=== PATIENT | female | born 1945 | race Hispanic/Latino ===

== ENCOUNTER 2025-04-23 14:55 | Observation (INO) | payer OTHER ==
[2025-04-23 15:48] LABS: Absolute Eosinophils 0.1 K/uL (0-0.5); Absolute Monocytes 0.5 K/uL (0.1-1.3); Basophils % 0.4 % (0-1.3); Eosinophils % 1.2 % (0-4.4); Hematocrit 32.3 % (36.0-45.0); Hemoglobin 11.2 g/dL (12.0-15.0); Lymphocytes % 12.9 % (15.3-44.8); MCH 30.8 pg (27.0-35.0); MCHC 34.6 g/dL (32.0-36.0); MPV 7.4 fL (7.6-11.3); Monocytes % 6.1 % (3.3-12.3); Neutrophils % 79.4 % (41.7-73.7); Nucleated Red Blood Cells % 0.1 % (0-0); Platelets 249 thou/uL (152-406); RBC Red Blood Cell Count 3.63 M/uL (3.86-4.86); Red Cell Distribution Width 13.1 % (12.1-15.2)
[2025-04-23] MEDS ORDERED: LORazepam 2 MG/ML VIAL ONE (15:55)
[2025-04-23 15:57] LABS: PT Prothrombin Time 12.3 SECONDS (10-13.0); Protime INR 1.08
[2025-04-23] MEDS ORDERED: ONDANSETRON 4 MG/2 ML VIAL ONE (15:57)
[2025-04-23] MEDS ORDERED: ASPIRIN 81 MG CHEWABLE TABLET ONE (15:58)
[2025-04-23] MEDS ORDERED: FENTANYL CITR 100 MCG/2 ML ONE (15:59)
[2025-04-23] MEDS ORDERED: FAMOTIDINE 20 MG/2 ML VIAL IV ONE (16:00)
[2025-04-23] MEDS ORDERED: NA CHLORIDE 0.9% 1,000 ML ONE (16:01)
[2025-04-23] MEDS ORDERED: NA CHLORIDE 0.9% 500 ML ONE (16:01)
[2025-04-23] MEDS ORDERED: FOLIC ACID 5 MG/ML VIAL ONE (16:02)
--- NOTE | 2025-04-23 16:04 | RAD REPORT ---
EXAM: Chest Single View HISTORY: 79 years Female CHEST PAIN COMPARISON: None. FINDINGS: LUNGS/PLEURA: The lungs are clear. No pleural effusions or pneumothorax. No pulmonary edema. CARDIAC/MEDIASTINUM: The cardiac silhouette is within normal limits. UPPER ABDOMEN: No significant abnormality. BONES: No acute abnormality. LINES/TUBES/OTHER: N/A IMPRESSION: No evidence of acute cardiopulmonary disease.
[2025-04-23 16:28] LABS: ALT/SGPT 17 U/L (13-56); AST/SGOT 11 U/L (15-37); Albumin 3.6 g/dL (3.4-5.0); Albumin/Globulin Ratio 0.9 (1.1-1.8); Alkaline Phosphatase 86 U/L (45-117); Anion Gap 16.7 mEq/L (5.0-15.0); BUN Blood Urea Nitrogen 21 mg/dL (7-18); Bicarbonate 21 mEq/L (21-32); Bilirubin Total 0.2 mg/dL (0.2-1.0); Globulin 3.9 g/dL (2.3-3.5); Glomerular Filtration Rate 73 ml/min (=/>90); Glucose Level 92 mg/dL (74-106); Lipase 40 U/L (13-75); Magnesium 1.2 mg/dL (1.6-2.4); NT PRO-BNP 307 pg/mL (<450); Potassium 3.7 mEq/L (3.5-5.1); Protein, Total 7.5 g/dL (6.4-8.2); Sodium Level 141 mEq/L (136-145); Troponin High Sensitivity 5.7 pg/mL (<58.9)
[2025-04-23 16:38] LABS: Bilirubin Direct < 0.2 mg/dL (0-0.2)
--- NOTE | 2025-04-23 17:09 | EDPHYS ---
Physician Documentation [facility] Name: Fab Goel Age: 79 yrs Sex: Female : 1945 Arrival Date: 04/23/2025 Time: 14:55 Bed 5 Private MD: ED Physician Gerardo Moss HPI: 04/23 17:01 This 79 yrs old Female presents to ER via EMS with complaints of Chest Pain. [facility] 17:01 The patient or guardian reports chest pain that is located primarily in the anterior [facility] chest wall, bilaterally. Onset: this morning, today. The pain does not radiate. Associated signs and symptoms: Pertinent positives: dizziness. The chest pain is described as dull. Duration: The patient or guardian reports multiple episodes, with no pattern. Modifying factors: The symptoms are alleviated by nothing. the symptoms are aggravated by nothing. Severity of pain: At its worst the pain was mild in the emergency department the pain has resolved and did so just prior to arrival. The patient has experienced similar episodes in the past, a few times. Historical: - Allergies: 15:46 No Known Allergies; bp - Immunization history:: Adult Immunizations up to date. - Infectious Disease History:: Denies. - Social history:: Smoking status: Patient denies any tobacco usage or history of. ROS: 17:02 Constitutional: Negative for fever, chills, and weight loss, Eyes: Negative for injury, pipo pain, redness, and discharge, ENT: Negative for injury, pain, and discharge, Neck: Negative for injury, pain, and swelling, Respiratory: Negative for shortness of breath, cough, wheezing, and pleuritic chest pain, Abdomen/GI: Negative for abdominal pain, nausea, vomiting, diarrhea, and constipation, Back: Negative for injury and pain, : Negative for injury, bleeding, discharge, and swelling, MS/Extremity: Negative for injury and deformity, Skin: Negative for injury, rash, and discoloration, Psych: Negative for depression, anxiety, suicide ideation, homicidal ideation, and hallucinations, Allergy/Immunology: Negative for hives, rash, and allergies, Endocrine: Negative for neck swelling, polydipsia, polyuria, polyphagia, and marked weight changes, Hematologic/Lymphatic: Negative for swollen nodes, abnormal bleeding, and unusual bruising, 17:02 Cardiovascular: Positive for chest pain, of the chest, 17:02 Respiratory: Negative for cough, dyspnea on exertion, hemoptysis, orthopnea, pleurisy, shortness of breath, sputum production, 17:02 Neuro: Positive for dizziness, weakness, Negative for altered mental status, seizure activity, speech changes, syncope, near syncope, visual changes, Exam: 17:02 Radiologist reports: SEE REPORT pipo 17:02 Constitutional: This is a well developed, well nourished patient who is awake, alert, and in no acute distress. Head/Face: Normocephalic, atraumatic. Eyes: Pupils equal round and reactive to light, extra-ocular motions intact. Lids and lashes normal. Conjunctiva and sclera are non-icteric and not injected. Cornea within normal limits. Periorbital areas with no swelling, redness, or edema. ENT: Nares patent. No nasal discharge, no septal abnormalities noted. Tympanic membranes are normal and external auditory canals are clear. Oropharynx with no redness, swelling, or masses, exudates, or evidence of obstruction, uvula midline. Mucous membranes moist. Neck: Trachea midline, no thyromegaly or masses palpated, and no cervical lymphadenopathy. Supple, full range of motion without nuchal rigidity, or vertebral point tenderness. No Meningismus. Chest/axilla: Normal chest wall appearance and motion. Nontender with no deformity. No lesions are appreciated. Cardiovascular: Regular rate and rhythm with a normal S1 and S2. No gallops, murmurs, or rubs. Normal PMI, no JVD. No pulse deficits. Respiratory: Lungs have equal breath sounds bilaterally, clear to auscultation and percussion. No rales, rhonchi or wheezes noted. No increased work of breathing, no retractions or nasal flaring. Abdomen/GI: Soft, non-tender, with normal bowel sounds. No distension or tympany. No guarding or rebound. No evidence of tenderness throughout. Back: No spinal tenderness. No costovertebral tenderness. Full range of motion. Female : Normal external genitalia. Skin: Warm, dry with normal turgor. Normal color with no rashes, no lesions, and no evidence of cellulitis. MS/ Extremity: Pulses equal, no cyanosis. Neurovascular intact. Full, normal range of motion., bilateral aka Neuro: Awake and alert, GCS 15, oriented to person, place, time, and situation. Cranial nerves II-XII grossly intact. Motor strength 5/5 in all extremities. Sensory grossly intact. Cerebellar exam normal. Normal gait. Psych: Awake, alert, with orientation to person, place and time. Behavior, mood, and affect are within normal limits. 17:02 ECG was reviewed by the Attending Physician. Vital Signs: 16:33 BP 151 / 70; Pulse 86 RA; dd2 16:33 BP 149 / 71; Pulse 87 LA; bp 20:38 BP 107 / 92; Pulse 73; Resp 20; Temp 98.2; Pulse Ox 98% ; bm8 NIH Stroke Scale Scores: 17:10 NIHSS Score: 0 pipo Bertram Coma Score: 20:38 Eye Response: spontaneous(4). Motor Response: obeys commands(6). Verbal Response: bm8 oriented(5). Total: 15. MDM: 15:02 Medical Screening Exam initiated pipo 17:04 Differential diagnosis: abnormal EKG, acute myocardial infarction, acute pericarditis, pipo anxiety, coronary artery disease chest wall pain, congestive heart failure Cholelithiasis costochondritis, Dementia, esophagitis, hiatal hernia, pancreatitis, peptic ulcer disease, pneumonia, pulmonary embolus, stable angina, thoracic aortic disection, unstable angina. HEART Score: History: Slightly Suspicious (0), ECG: Normal (0), Age: > or = 65 years (2), Risk Factors: 1 or 2 risk factors (1), [Hypertension] [+ Family HX] Troponin: < or = 1 x Normal Limit (0). Differential diagnosis: cardiac arrhythmia, CVA, generalized weakness, GI bleed, head injury, hyperventilation, hypovolemia, idiopathic dizziness, near-syncope, , sepsis, syncope, TIA, vertigo. The patient was given aspirin in the Emergency Department. TNKase (Tenecteplase) Screening: Contraindications: Other: ONSET DIZZY FOR 2 WEEK , CP IS NEW TODAY Patient reports onset of signs and symptoms of stroke greater than 6 hours ago: No. Data reviewed: vital signs, nurses notes, EMS record, lab test result(s), EKG, radiologic studies, CT scan, plain films. Consideration of Admission/Observation Patient was admitted/placed on observation. Escalation of care including admission/observation considered. I considered the following discharge prescriptions or medication management in the emergency department Medications were administered in the Emergency Department. See MAR. Test considered but Not performed: Ultrasound NO 2 D ECHO. Care significantly affected by the following chronic conditions: Diabetes, Hypertension. Counseling: I had a detailed discussion with the patient and/or guardian regarding the historical points, exam findings, and any diagnostic results supporting the discharge/admit diagnosis, the presence of at least one elevated blood pressure reading (>120/80) during this emergency department visit, lab results, radiology results, the need for further work-up and treatment in the hospital. 04/23 15:04 Order name: Basic Metabolic Panel; Complete Time: 16:56 [facility] 04/23 15:04 Order name: CBC with Diff; Complete Time: 16:56 [facility] 04/23 15:04 Order name: LFT's; Complete Time: 16:56 [facility] 04/23 15:04 Order name: Magnesium; Complete Time: 16:56 [facility] 04/23 15:04 Order name: NT PRO-BNP; Complete Time: 16:56 [facility] 04/23 15:04 Order name: PT-INR; Complete Time: 16:56 [facility] 04/23 15:04 Order name: Troponin HS; Complete Time: 16:56 [facility] 04/23 15:04 Order name: Lipase; Complete Time: 16:56 [facility] 04/23 15:04 Order name: UA Rfx Panfilo Cult if indicated; Complete Time: 18:23 [facility] 04/23 15:17 Order name: D-Dimer; Complete Time: 16:56 [facility] 04/23 17:17 Order name: Troponin High Sensitivity; Complete Time: 18:23 [facility] 04/23 17:55 Order name: Lipid Profile [facility] 04/23 18:51 Order name: Basic Metabolic Panel [facility] 04/23 18:51 Order name: Basic Metabolic Panel [facility] 04/23 18:51 Order name: CBC with Automated Diff [facility] 04/23 18:51 Order name: CBC with Automated Diff [facility] 04/23 18:51 Order name: Troponin High Sensitivity [facility] 04/23 18:51 Order name: Troponin High Sensitivity [facility] 04/23 18:51 Order name: Troponin High Sensitivity [facility] 04/23 18:51 Order name: Troponin High Sensitivity [facility] 04/23 18:51 Order name: Troponin High Sensitivity [facility] 04/23 15:04 Order name: XRAY Chest (1 view); Complete Time: 16:56 [facility] 04/23 15:07 Order name: CT Head Brain wo Cont; Complete Time: 18:23 [facility] 04/23 15:17 Order name: CT Head Angio; Complete Time: 18:23 [facility] 04/23 15:17 Order name: CT Neck Angio; Complete Time: 18:23 [facility] 04/23 18:51 Order name: Echo with Doppler [facility] 04/23 15:04 Order name: Cardiac monitoring; Complete Time: 15:46 [facility] 04/23 15:04 Order name: EKG - Nurse/Tech; Complete Time: 15:19 [facility] 04/23 15:04 Order name: IV Saline Lock; Complete Time: 15:43 [facility] 04/23 15:04 Order name: Labs collected and sent; Complete Time: 15:43 [facility] 04/23 15:04 Order name: O2 Per Protocol; Complete Time: 15:46 [facility] 04/23 15:04 Order name: O2 Sat Monitoring; Complete Time: 15:46 [facility] 04/23 15:17 Order name: Bilateral blood pressure; Complete Time: 16:34 [facility] EC:02 Rate is 81 beats/min. Rhythm is regular. QRS [place] is Normal. NV interval is normal. QRS pipo interval is normal. QT interval is normal. No Q waves. T waves are Normal. No ST changes noted. Clinical impression: NSR w/ Non-specific ST/T Changes, LVH, and No evidence of ischemia. Interpreted by me. Reviewed by me. Administered Medications: 16:28 Drug: foLIC Acid IVPB 1 mg IVPB once Route: IVPB; Site: right antecubital; dd2 16:29 Follow up: IV Status: Completed infusion dd2 16:28 Drug: NS 0.9% IV 1000 ml IV at 125 ml/hr once; to be given as a bolus over 60 minutes dd2 Route: IV; Rate: 125 ml/hr; Site: left antecubital; 20:41 Follow up: Response: No adverse reaction; IV Status: Infusion continued upon admission bm8 20:41 Follow up: Response: No adverse reaction; IV Status: Infusion continued upon admission ha1 16:29 Drug: Famotidine IVP 20 mg IVP once; dilute with 10 mL 0.9% NaCl; give over 2 minutes dd2 Route: IVP; Site: right hand; 20:42 Follow up: Response: No adverse reaction bm8 16:29 Drug: Aspirin PO Chewable Tablet 81 mg PO once Route: PO; dd2 20:42 Follow up: Response: No adverse reaction bm8 16:29 Drug: Ativan IVP 0.5 mg IVP once Route: IVP; Site: right hand; dd2 20:42 Follow up: Response: No adverse reaction bm8 16:29 Drug: fentaNYL (PF) IVP 25 mcg IVP once Route: IVP; Site: right antecubital; dd2 20:42 Follow up: Response: No adverse reaction bm8 16:29 Drug: Ondansetron IVP 4 mg IVP once; over 2 minutes Route: IVP; Site: right antecubital;dd2 20:41 Follow up: Response: No adverse reaction bm8 16:30 Drug: NS 0.9% IV 500 ml 500 ml IV at 1 bolus once; to be given as a bolus over 30 dd2 minutes Volume: 500 ml; Route: IV; Rate: 1 bolus; Site: right hand; 17:15 Follow up: IV Status: Completed infusion dd2 18:32 Drug: Aspirin PO Chewable Tablet 243 mg PO once Route: PO; dd2 20:41 Follow up: Response: No adverse reaction bm8 18:32 Drug: Clopidogrel PO 75 mg PO once Route: PO; dd2 19:00 Follow up: Response: No adverse reaction ha1 20:41 Follow up: Response: No adverse reaction bm8 18:32 Drug: Magnesium Sulfate IVPB 2 grams IVPB once over 2 hrs Route: IVPB; Infused Over: 2 dd2 hrs; Site: left antecubital; 20:41 Follow up: Response: No adverse reaction; IV Status: Completed infusion ha1 20:41 Follow up: Response: No adverse reaction; IV Status: Completed infusion bm8 18:32 Drug: Atorvastatin PO 40 mg PO once Route: PO; dd2 20:40 Follow up: Response: No adverse reaction bm8 Disposition Summary: 04/23/25 17:08 Hospitalization Ordered Notes: Hospitalization Status: Observation pipo Provider: Mat Hernandez cha Location: Telemetry/MedSurg (observation) pipo Condition: Stable pipo Problem: new pipo Symptoms: have improved pipo Bed/Room Type: Standard pipo Room Assignment: 408(04/23/25 18:59) sp Diagnosis - Essential (primary) hypertension pipo - Chest pain, unspecified pipo - Dizziness and giddiness pipo - Hypomagnesemia pipo Forms: - Medication Reconciliation Form pipo - SBAR form pipo - Leadership Thank You Letter pipo NIH Stroke Scale - NIH Stroke Score Date: 04/23/2025 Time: 17:10 Total Score = 0 10. Dysarthria (speech clarity - read or repeat words) - 0(Normal) 11. Extinction and Inattention (visual/tactile/auditory/spatial/personal) - 0(No abnormality) 1a. Level of Consciousness (LOC) - 0(Alert) 1b. Level of Consciousness (LOC) (Month \T\ Age) - 0(Both) 1c. LOC Commands (Open \T\ Closes Eyes/Sourcing Consultant) - 0(Both) 2. Best Gaze (Lateral Gaze Paresis) - 0(Normal) 3. Visual Field Loss - 0(No visual loss) 4. Facial Palsy - 0(Normal) 5a. Left Arm: Motor (10-second hold) - 0(No drift) 5b. Right Arm: Motor (10-second hold) - 0(No drift) 6a. Left Leg: Motor (5-second hold - always test supine) - 0(No drift) 6b. Right Leg: Motor (5-second hold - always test supine) - 0(No drift) 7. Limb Ataxia (finger/nose \T\ heel/frank - test with eyes open) - 0(Absent) 8. Sensory Loss (pinprick arms/legs/face) - 0(Normal) 9. Best Language: Aphasia (description/naming/reading) - 0(No aphasia) Initials: [facility] Signatures: Dispatcher [employer] EDMS Gerardo Moss MD MD cha Pinkerton, Shawna sp Peltier, Brian, RN RN bp DAVIS, DIANA, RN RN dd2 Selena Harrison RN ha1 Tristan Mills RN bm8 Corrections: (The following items were deleted from the chart) 15:04 15:04 BASIC METABOLIC PANEL+C.LAB.BRZ ordered. EDMS EDMS 15:04 15:04 CBC+H.LAB.BRZ ordered. EDMS EDMS 15:04 15:04 HEPATIC FUNCTION+C.LAB.BRZ ordered. EDMS EDMS 15:04 15:04 MAGNESIUM+C.LAB.BRZ ordered. EDMS EDMS 15:04 15:04 PROBNP+C.LAB.BRZ ordered. EDMS EDMS 15:04 15:04 PROTIME (+INR)+COAG.LAB.BRZ ordered. EDMS EDMS 15:04 15:04 Troponin High Sensitivity+C.LAB.BRZ ordered. EDMS EDMS 15:04 15:04 LIPASE+C.LAB.BRZ ordered. EDMS EDMS 15:04 15:04 UA Rfx Panfilo Cult if indicated+U.LAB.BRZ ordered. EDMS EDMS 15:04 15:04 Chest Single View+RAD.RAD.BRZ ordered. EDMS EDMS 15:04 15:04 Angio Aorta For Dissection+CT.RAD.BRZ ordered. EDMS EDMS 17:56 17:56 LIPID PROFILE+C.LAB.BRZ ordered. EDMS EDMS 18:59 17:08 pipo sp
--- NOTE | 2025-04-23 17:09 | ER ---
Nurse's Notes [facility] Name: Fab Goel Age: 79 yrs Sex: Female : 1945 Arrival Date: 04/23/2025 Time: 14:55 Bed 5 Private MD: Diagnosis: Essential (primary) hypertension;Chest pain, unspecified;Dizziness and giddiness;Hypomagnesemia Presentation: 04/23 15:00 Chief complaint: EMS states: CHEST TIGHTNESS. Coronavirus screen: At this time, the bp client does not indicate any symptoms associated with coronavirus-19. Ebola Screen: No symptoms or risks identified at this time. Initial Sepsis Screen: Does the patient meet any 2 criteria? No. Patient's initial sepsis screen is negative. Does the patient have a suspected source of infection? No. Patient's initial sepsis screen is negative. Risk Assessment: Do you want to hurt yourself or someone else? Patient reports no desire to harm self or others. Onset of symptoms was April 23, 2025. 15:00 Method Of Arrival: EMS: [facility] bp 15:00 Acuity: LELE 3 bp Triage Assessment: 15:00 General: Appears in no apparent distress. comfortable, Behavior is cooperative, bp appropriate for age, anxious. 15:00 Pain: Complains of pain in chest. EENT: No deficits noted. Neuro: No deficits noted. bp Cardiovascular: Reports chest pain. Respiratory: No deficits noted. GI: No signs and/or symptoms were reported involving the gastrointestinal system. : No signs and/or symptoms were reported regarding the genitourinary system. Derm: No deficits noted. Musculoskeletal: No deficits noted. Historical: - Allergies: 15:46 No Known Allergies; bp - Immunization history:: Adult Immunizations up to date. - Infectious Disease History:: Denies. - Social history:: Smoking status: Patient denies any tobacco usage or history of. Screenin:38 [facility] ED Fall Risk Assessment (Adult) History of falling in the last 3 months, bm8 including since admission No falls in past 3 months (0 pts) Confusion or Disorientation No (0 pts) Intoxicated or Sedated No (0 pts) Impaired Gait No (0 pts) Mobility Assist Device Used No (0 pt) Altered Elimination No (0 pt) Score/Fall Risk Level 0 - 2 = Low Risk Oriented to surroundings, Maintained a safe environment, Educated pt \T\ family on fall prevention, incl call for assistance when getting out of bed, Assessed \T\ reinforced patient's understanding of fall precautions, Hourly rounding (assess needs \T\ fall precautionary measures) done, Used ambulatory aids as needed (educated on \T\ assisted with), Used gait belt as appropriate. Abuse screen: Denies threats or abuse. Nutritional screening: No deficits noted. Tuberculosis screening: No symptoms or risk factors identified. Assessment: 20:38 Reassessment: Patient appears in no apparent distress at this time. Patient and/or bm8 family updated on plan of care and expected duration. Pain level reassessed. Patient is alert, oriented x 3, equal unlabored respirations, skin warm/dry/pink. Vital Signs: 16:33 BP 151 / 70; Pulse 86 RA; dd2 16:33 BP 149 / 71; Pulse 87 LA; bp 20:38 BP 107 / 92; Pulse 73; Resp 20; Temp 98.2; Pulse Ox 98% ; bm8 Bertram Coma Score: 20:38 Eye Response: spontaneous(4). Motor Response: obeys commands(6). Verbal Response: bm8 oriented(5). Total: 15. NIH Stroke Scale Scores: 17:10 NIHSS Score: 0 pipo ED Course: 15:00 Arm band placed on. bp 15:01 Patient arrived in ED. bp 15:01 Gerardo Moss MD is Attending Physician. pipo 15:42 Initial lab(s) drawn, by [facility], sent to lab. Inserted saline lock: 22 gauge in left iw antecubital area, using aseptic technique. Blood collected. Flushed with 10 mL NS. 15:46 Triage completed. bp 15:53 XRAY Chest (1 view) In Process Unspecified. EDMS 17:08 Mat Hernandez MD is Hospitalizing Provider. pipo 17:11 Farrukh Yates, CORA is Primary Nurse. bp 17:26 CT Head Brain wo Cont In Process Unspecified. EDMS 17:26 CT Head Angio In Process Unspecified. EDMS 17:26 CT Neck Angio In Process Unspecified. EDMS 20:38 No provider procedures requiring assistance completed. Patient admitted, IV remains in bm8 place. Patient maintains SpO2 saturation greater than 95% on room air. 20:38 Patient has correct armband on for positive identification. Placed in gown. Bed in low bm8 position. Call light in reach. Side rails up X 1. Provided Education on: need for admission. Client placed on continuous cardiac and pulse oximetry monitoring. NIBP monitoring applied. program manager rn on. Pulse ox on. NIBP on. Administered Medications: 16:28 Drug: foLIC Acid IVPB 1 mg IVPB once Route: IVPB; Site: right antecubital; dd2 16:29 Follow up: IV Status: Completed infusion dd2 16:28 Drug: NS 0.9% IV 1000 ml IV at 125 ml/hr once; to be given as a bolus over 60 minutes dd2 Route: IV; Rate: 125 ml/hr; Site: left antecubital; 20:41 Follow up: Response: No adverse reaction; IV Status: Infusion continued upon admission bm8 20:41 Follow up: Response: No adverse reaction; IV Status: Infusion continued upon admission ha1 16:29 Drug: Famotidine IVP 20 mg IVP once; dilute with 10 mL 0.9% NaCl; give over 2 minutes dd2 Route: IVP; Site: right hand; 20:42 Follow up: Response: No adverse reaction bm8 16:29 Drug: Aspirin PO Chewable Tablet 81 mg PO once Route: PO; dd2 20:42 Follow up: Response: No adverse reaction bm8 16:29 Drug: Ativan IVP 0.5 mg IVP once Route: IVP; Site: right hand; dd2 20:42 Follow up: Response: No adverse reaction bm8 16:29 Drug: fentaNYL (PF) IVP 25 mcg IVP once Route: IVP; Site: right antecubital; dd2 20:42 Follow up: Response: No adverse reaction bm8 16:29 Drug: Ondansetron IVP 4 mg IVP once; over 2 minutes Route: IVP; Site: right antecubital;dd2 20:41 Follow up: Response: No adverse reaction bm8 16:30 Drug: NS 0.9% IV 500 ml 500 ml IV at 1 bolus once; to be given as a bolus over 30 dd2 minutes Volume: 500 ml; Route: IV; Rate: 1 bolus; Site: right hand; 17:15 Follow up: IV Status: Completed infusion dd2 18:32 Drug: Aspirin PO Chewable Tablet 243 mg PO once Route: PO; dd2 20:41 Follow up: Response: No adverse reaction bm8 18:32 Drug: Clopidogrel PO 75 mg PO once Route: PO; dd2 19:00 Follow up: Response: No adverse reaction ha1 20:41 Follow up: Response: No adverse reaction bm8 18:32 Drug: Magnesium Sulfate IVPB 2 grams IVPB once over 2 hrs Route: IVPB; Infused Over: 2 dd2 hrs; Site: left antecubital; 20:41 Follow up: Response: No adverse reaction; IV Status: Completed infusion ha1 20:41 Follow up: Response: No adverse reaction; IV Status: Completed infusion bm8 18:32 Drug: Atorvastatin PO 40 mg PO once Route: PO; dd2 20:40 Follow up: Response: No adverse reaction bm8 Medication: 20:38 VIS not applicable for this client. bm8 Outcome: 17:08 Decision to Hospitalize by Provider. pipo 20:38 Admitted to Tele accompanied by nurse, via wheelchair, 8 20:38 Condition: stable 20:38 Instructed on the need for admit, Demonstrated understanding of instructions, follow-up care, medications, 20:40 Admitted to Tele accompanied by nurse, accompanied by tech, via stretcher, room 408, ha1 with chart, 20:40 Condition: stable 20:40 Instructed on the need for admit, Demonstrated understanding of instructions, 20:40 Patient left the ED. ha1 NIH Stroke Scale - NIH Stroke Score Date: 04/23/2025 Time: 17:10 Total Score = 0 10. Dysarthria (speech clarity - read or repeat words) - 0(Normal) 11. Extinction and Inattention (visual/tactile/auditory/spatial/personal) - 0(No abnormality) 1a. Level of Consciousness (LOC) - 0(Alert) 1b. Level of Consciousness (LOC) (Month \T\ Age) - 0(Both) 1c. LOC Commands (Open \T\ Closes Eyes/Hematology Nurse Educator) - 0(Both) 2. Best Gaze (Lateral Gaze Paresis) - 0(Normal) 3. Visual Field Loss - 0(No visual loss) 4. Facial Palsy - 0(Normal) 5a. Left Arm: Motor (10-second hold) - 0(No drift) 5b. Right Arm: Motor (10-second hold) - 0(No drift) 6a. Left Leg: Motor (5-second hold - always test supine) - 0(No drift) 6b. Right Leg: Motor (5-second hold - always test supine) - 0(No drift) 7. Limb Ataxia (finger/nose \T\ heel/frank - test with eyes open) - 0(Absent) 8. Sensory Loss (pinprick arms/legs/face) - 0(Normal) 9. Best Language: Aphasia (description/naming/reading) - 0(No aphasia) Initials: [facility] Signatures: Dispatcher [employer] EDGerardo Cedeno MD MD cha Williams, Irene, RN CORA iw Farrukh Yates RN RN bp Selena Harrison RN RN ha1 Tristan Mills RN CORA bm8 ANTONIO SIMONS RN RN dd2 Corrections: (The following items were deleted from the chart) 17:11 16:33 BP 149 / 1; Pulse 87bpm Left Arm; dd2 bp
--- NOTE | 2025-04-23 17:30 | RAD REPORT ---
EXAMINATION: Head Brain Wo Cont CLINICAL INDICATION: Female, 79 years old.HEADACHE TECHNIQUE: Axial CT images from the skull base to the vertex without intravenous contrast. Coronal an d sagittal reformatted images were created from the data set. One or more of the following dose reduction techniques were used: Automated exposure control, adjustment of the mA and/or kV according to patient size, and/or iterative reconstruction. Unless otherwise specified, incidental findings do not require dedicated imaging follow-up. [id number]. COMPARISON: No prior exam. FINDINGS: INTRACRANIAL: No acute intracranial hemorrhage. No hydrocephalus. No mass effect or midline shift. Mi ld chronic small vessel ischemic changes.Mild cerebral atrophy. VASCULATURE: No visualized abnormalities in the arteries or dural venous sinuses. SCALP/SKULL: No calvarial fracture identified. No acute soft tissue abnormality. SINUSES: The visualized paranasal sinuses are mostly clear. No significant mastoid fluid. IMPRESSION: No acute intracranial abnormality.
--- NOTE | 2025-04-23 17:31 | RAD REPORT ---
EXAMINATION: Neck Angio CLINICAL INDICATION: Female, 79 years old. HEADACHE TECHNIQUE: Axial CT images were obtained from the aortic arch to the skull base after intravenous con trast utilizing angiographic protocol with 3D post-processing (maximum intensity projection images, volume rendered images and/or shaded surface rendered images). One or more of the following dose redu ction techniques were used: Automated exposure control, adjustment of the mA and/or kV according to patient size, and/or iterative reconstruction. Unless otherwise specified, incidental findings do not require dedicated imaging follow-up. [id number]. NASCET criteria used. Mild 0-49% stenosis Moderate 50-69% stenosis Severe 70-99% stenosis COMPARISON: No prior exam. FINDINGS: AORTA: Normal RIGHT: - CCA: Atherosclerotic changes but no flow limiting stenosis. - ICA: Atherosclerotic changes but no flow limiting stenosis. - ECA: Patent LEFT: - CCA: Atherosclerotic changes but no flow limiting stenosis. - ICA: Atherosclerotic changes but no flow limiting stenosis. - ECA: Patent VERTEBRAL: Patent SOFT TISSUE: No significant neck soft tissue abnormalities. The visualized lung apices are clear. 3D images confirm these findings. IMPRESSION: No arterial dissection or stenosis identified within the neck.
--- NOTE | 2025-04-23 17:36 | RAD REPORT ---
EXAMINATION: Head angio CLINICAL INDICATION: Female, 79 years old. HEADACHE TECHNIQUE: Axial CT images were obtained through the head after intravenous contrast utilizing angiog raphic protocol with 3D post-processing (maximum intensity projection images, volume rendered images and/or shaded surface rendered images). One or more of the following dose reduction technique s were used: Automated exposure control, adjustment of the mA and/or kV according to patient size, and/or iterative reconstruction. Unless otherwise specified, incidental findings do not require dedic ated imaging follow-up. COMPARISON: No prior exam. FINDINGS: RIGHT: ICA: Atherosclerotic calcifications but no flow limiting stenosis. MAGGIE: Patent MCA: Patent DOWEL SANDER OPERATOR: Moderate to severe focal stenosis of the right P2 DOWEL SANDER OPERATOR LEFT: ICA: Atherosclerotic calcifications but no flow limiting stenosis. MAGGIE: Patent MCA: Patent DOWEL SANDER OPERATOR: Multifocal stenoses of the left DOWEL SANDER OPERATOR including a moderate to severe left P2 DOWEL SANDER OPERATOR focal stenosis. Vertebrobasilar: The vertebral arteries are patent. The basilar artery is normal in appearance. 3D images confirm these findings. IMPRESSION: No large vessel occlusion or aneurysm. Both posterior cerebral arteries have moderate to severe focal stenoses.
[2025-04-23] MEDS ORDERED: CLOPIDOGREL 75 MG TABLET ONE (18:14)
[2025-04-23] MEDS ORDERED: Magnesium Sulfate 2gm IVPB 2 G/50 ML BAG IV ONE (18:14)
[2025-04-23] MEDS ORDERED: ATORVASTATIN 40 MG TAB ONE (18:14)
[2025-04-23 18:21] LABS: Specific Gravity 1.017 (1.005-1.030); Sqamous Epithelial <5 /HPF (None Seen); Urine Bacteria None Seen /HPF (<20); Urine Bilirubin NEGATIVE (Negative); Urine Blood Negative (Negative); Urine Clarity Clear (Clear); Urine Color Colorless (Yellow); Urine Culture Reflex Order NOT NEEDED; Urine Glucose NEGATIVE (Negative); Urine Ketones NEGATIVE (Negative); Urine Microscopic Reflex YN ORDER UMIC; Urine Nitrite NEGATIVE (Negative); Urine Protein NEGATIVE (Negative); Urine RBC <5 /HPF (None Seen); Urine Urobilinogen Normal (Normal); Urine WBC <5 /HPF (<5); Urine Yeast (Budding) Trace /HPF (None Seen); Urine pH 6.5 (5.0-7.0)
[2025-04-23] MEDS ORDERED: NITROGLYCERIN 0.4 MG/TAB SL PRN (18:47)
--- NOTE | 2025-04-23 18:55 | P.HP ---
Certification for Inpatient Patient admitted to: Observation With expected LOS: <2 Midnights Practitioner: I am a practitioner with admitting privileges, knowledge of patient current condition, hospital course, and medical plan of care. Services: Services provided to patient in accordance with Admission requirements found in Title 42 Section 412.3 of the Code of Federal Regulations Patient History Date of Service: 04/23/25 Reason for admission: chest pain and syncope History of Present Illness: Patient is a 79-year-old female brought in for evaluation of chest pain and syncope. Patient was noted to have developed chest pain she was followed by an episode of syncope. As per daughter, patient was dozing off. Daughter also mentions that patient developed right sided weakness. She has been seen recently for TIA after she presented with slurred speech. She has no documented history of stroke. Patient has a history of hypertension. Workup in the ER included a CT head and CT angio. No acute stroke found. CT angio of the head revealed moderate to severe stenosis of both posterior cerebral arteries. The first 2 troponins have been negative. Physical Examination - Physical Exam General: Acute distress, Confused HEENT: Atraumatic, Normocephalic Respiratory: Clear to auscultation bilaterally, Normal air movement Cardiovascular: No edema, Normal pulses, Regular rate/rhythm, Normal S1 S2 Neurological: Normal speech - Studies Laboratory Data (last 24 hrs) 04/23/25 04/23/25 04/23/25 15:39 15:39 15:39 WBC 7.50 Hgb 11.2 L Hct 32.3 L Plt Count 249 PT 12.3 INR 1.08 Sodium 141 Potassium 3.7 BUN 21 H Creatinine 0.82 Glucose 92 Magnesium 1.2 L Total Bilirubin 0.2 AST 11 L ALT 17 Alkaline Phosphatase 86 Lipase 40 Assessment and Plan - Problems (Diagnosis) (1) TIA (transient ischemic attack) Current Visit: Yes Status: Acute (2) Syncope Current Visit: Yes Status: Acute (3) Hypertension Current Visit: Yes Status: Acute (4) 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 She presented after she developed an acute episode of chest pain. This was followed by syncope which was manifested by dozing off. Daughter also suspect the patient had right sided weakness. Her CT head was negative for acute stroke. She does have moderate to severe bilateral stenosis of posterior cerebral artery. Patient was seen recently in the ER for TIA symptoms. Her first 2 troponins are negative. TIA Chest painACS rule out Hypertension Plan: Will admit under observation with telemetry Trend troponin Obtain a 2D echo Will also go ahead and obtain formal brain MRI Continue aspirin atorvastatin Patient may benefit from Plavix as well Follow lipid panel PT/OT ordered Permissive hypertension Resume rest of home medication if indicated. - Advance Directives Does patient have a Living Will: No Does patient have a Durable POA for Healthcare: No
[2025-04-23] MEDS: ATORVASTATIN 80 MG TAB PO SCH (22:10)
[2025-04-23 22:25] VITALS: BMI 22.8
[2025-04-24 06:29] LABS: Absolute Eosinophils 0.2 K/uL (0-0.5); Absolute Lymphocytes (CBC) 1.3 K/uL (0.7-4.9); Absolute Monocytes 0.6 K/uL (0.1-1.3); Absolute Neutrophil 4.7 K/uL (1.8-8.0); Basophils % 0.3 % (0-1.3); Eosinophils % 2.4 % (0-4.4); Hematocrit 29.4 % (36.0-45.0); Hemoglobin 10.3 g/dL (12.0-15.0); Lymphocytes % 19.6 % (15.3-44.8); MCH 31.1 pg (27.0-35.0); MPV 7.3 fL (7.6-11.3); Monocytes % 8.3 % (3.3-12.3); Neutrophils % 69.4 % (41.7-73.7); Platelets 243 thou/uL (152-406); Red Cell Distribution Width 13.3 % (12.1-15.2)
[2025-04-24 06:55] LABS: Anion Gap 9.1 mEq/L (5.0-15.0); Potassium 4.1 mEq/L (3.5-5.1)
[2025-04-24] MEDS: ASPIRIN EC 81 MG TAB PO SCH (08:52)
[2025-04-24] MEDS: PNEUMOCOCCAL VACCINE 0.5 ML IMVAC ONE (08:52)
[2025-04-24 09:20] VITALS: O2SAT 100
--- NOTE | 2025-04-24 09:34 | P.PN ---
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 Woke up with right-sided weakness. Reports recently seen for TIA after she presented with slurred speech. No documented hx of stroke. CT head (04/23): No acute findings. CTA head/neck (04/23): Moderate-Severe focal stenoses of both posterior cerebral arteries. No CVA or large vessel occlusion. Troponins negative x2 so far, Monitor on telemetry Lab work unremarkable. UA not suggestive of UTI. Echo ordered to eval EF / stenosis Neuro/Cardio consults PT/OT/ST consulted MRI brain ordered to further eval. Cant be done over the weekend Continue statin, aspirin check lipid panel VTE: Code: Full Dispo: Home Pending consult recs, MRI, Echo Time Spent Managing Pts Care (In Minutes): 55
[2025-04-24] MEDS: Magnesium Sulfate 2gm IVPB 2 G/50 ML BAG IV ONE (14:03)
[2025-04-24 17:16] VITALS: BP 140/61; TEMP 97.5
--- NOTE | 2025-04-24 18:10 | CON ---
Date of Consultation: 04/24/2025 Reason For Consultation: Near syncope, questionable chest discomfort. History Of Present Illness: 79-year-old female who was brought in by her daughters because she had a n episode of confusion. They wanted to talk to her. She will not answer very well, but she did not pass out as per her daughters. She said that she grabbed her chest slightly, but she did not have a chest pain. The patient today seems to be more alert and awake and oriented and she declines having any chest pain or shortness of breath. No other complaints. Past Medical History: Dyslipidemia. Medications: Refer to reconciliation sheet for detailed list. Allergies: NO KNOWN DRUG ALLERGIES. Family History: No premature coronary artery disease or cancer. Social History: She does not smoke or drink. Does not use any drugs. Review of Systems: All systems reviewed and they were negative except as mentioned in the HPI. Physical Examination: Vital Signs: Reviewed. Head and Neck: Pupils are equal, reactive to light. Intact eye movements. No JVD. No cervical lym phadenopathy. Neck is supple. Thyroid is not enlarged. Lungs: Clear to auscultation bilaterally. No rhonchi, wheezing, or crackles. No accessory muscle u se. Heart: Regular rate and rhythm. No extra sounds. Abdomen: Soft, nontender. Bowel sounds positive. No organomegaly. No masses or hernia. No rigidi ty or rebound. Extremities: No edema, clubbing, or cyanosis. Intact pulses. Skin: No rash. No nodules. Neurologic: Alert, awake, and oriented x3. No acute focal deficits appreciated. Investigations: BUN 19, creatinine 0.56, and troponin is negative. Assessment And Recommendations: 1. Questionable chest discomfort. Patient declines having any chest pain. Her cardiac enzymes are n ormal. Since she is asymptomatic at this point, I recommend to obtain an echo. If her ejection frac tion is normal, no further workup will be needed as an inpatient and she can be followed on an outpat ient basis. 2. Near syncope, questionable, could be all confusion, possible infection. However, neurological abn ormalities like a stroke is to be ruled out. Recommend neurology evaluation. 3. Diabetes. Not sure if this is a new diagnosis. Patient is a very poor historian. Check hemoglob in A1c and plan accordingly. 4. Dyslipidemia. Continue statin. From Cardiology standpoint, this patient can have the workup as an outpatient and thank you for the c vanessault. Cardiology will sign off. SR/MODL Voice ID: [id number] Report ID: [id number]
--- NOTE | 2025-04-25 06:46 | P.DS ---
Admission Date: 04/23/25 Discharge Date: 04/24/25 Disposition: ROUTINE DISCHARGE Discharge Condition: GOOD Reason for Admission: chest pain and syncope Consultations: Neurology - Dr. Connolly Cardiology - Dr. Burton Brief History of Present Illness: 79yo F, PMH: Hypertension Patient was brought in for evaluation of chest pain and syncope. Patient was noted to have developed chest pain she was followed by an episode of syncope. As per daughter, patient was dozing off. Daughter also mentions that patient developed right sided weakness. She has been seen recently for TIA after she presented with slurred speech. She has no documented history of stroke. Patient has a history of hypertension. Workup in the ER included a CT head and CT angio. No acute stroke found. CT angio of the head revealed moderate to severe stenosis of both posterior cerebral arteries. The first 2 troponins have been negative. 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 She has had a few episodes over the last year characterized by confusion, and at times feeling like her tongue was twisting and couldn't talk. 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 Patient and family deny any recent changes in her medications. Patient lives alone, and family unsure if she takes all her meds as prescribed, and not sure how much she truly eats / stays hydrated. They do recall some days when checking on her, that she hadn't eaten much most of the day. Daughter also reports during this episode, patient was grabbing her chest and telling her daughter she was going to soon / ready to . Although patient didn't repoprt any chest pain/pressure. EKG without ischemic changes in ER, Chest xray was clear. Troponins were trended and normal. Blood work was only notable for low magnesium: 1.2. CT head was negative for acute findings. CTA head/neck, noted bilateral P2 / CARTOGRAPHY TECHNICIAN focal stenosis. Her blood pressure during hospitalization was low-noraml off her anti- hypertensives. Discussed with family need to montior closely, check BP and glucose level daily, ensure they are normal / stable. Stop taking anti-hypertensives for now. Monitor BP daily at home, and once consistently >160/90 for 2-3 days, to restart one blood pressure medication at a taime / every few days. Discussed case with Dr. Connolly, Neurology, who recommended continue current me dications, no need to add plavix at this time. Continue aspirin / statin. Recommended close monitoring of hydration status and blood pressure. Magnesium was replaced, and recommended patient take 200mg Mg daily. People have reported good results with brand - [facility] or similar. Follow up PCP within 1 week Neurology within [address] Head (04/23): FINDINGS: INTRACRANIAL: No acute intracranial hemorrhage. No hydrocephalus. No mass effect or midline shift. Mild chronic small vessel ischemic changes.Mild cerebral atrophy. VASCULATURE: No visualized abnormalities in the arteries or dural venous sinuses. SCALP/SKULL: No calvarial fracture identified. No acute soft tissue abnormality. SINUSES: The visualized paranasal sinuses are mostly clear. No significant mas toid fluid. IMPRESSION: No acute intracranial abnormality. CTA Head/Neck (04/23) FINDINGS: RIGHT: ICA: Atherosclerotic calcifications but no flow limiting stenosis. MAGGIE: Patent MCA: Patent CARTOGRAPHY TECHNICIAN: Moderate to severe focal stenosis of the right P2 CARTOGRAPHY TECHNICIAN LEFT: ICA: Atherosclerotic calcifications but no flow limiting stenosis. MAGGIE: Patent MCA: Patent CARTOGRAPHY TECHNICIAN: Multifocal stenoses of the left CARTOGRAPHY TECHNICIAN including a moderate to severe left P2 CARTOGRAPHY TECHNICIAN focal stenosis. Vertebrobasilar: The vertebral arteries are patent. The basilar artery is normal in appearance. 3D images confirm these findings. IMPRESSION: No large vessel occlusion or aneurysm. Both posterior cerebral arteries have moderate to severe focal stenoses. Physical Exam: GEN: Alert, oriented, NAD CV: Regular rate and rhythm, no edema Pulm: Nonlabored respirations on room air, clear bilaterally ABD: soft, nontender, nondistended Neuro: Normal speech, normal affect Vital Signs/Physical Exam: Temp Pulse Resp BP Pulse Ox 97.5 F 75 16 140/61 98 04/24/25 16:00 04/24/25 16:00 04/24/25 16:00 04/24/25 16:00 04/24/25 16:00 Laboratory Data at Discharge: WBC 6.80 thou/uL (4.3-10.9) 04/24/25 05:53 Hgb 10.3 g/dL (12.0-15.0) L D 04/24/25 05:53 Hct 29.4 % (36.0-45.0) L 04/24/25 05:53 Plt Count 243 thou/uL (152-406) 04/24/25 05:53 PT 12.3 SECONDS (10-13.0) 04/23/25 15:39 INR 1.08 04/23/25 15:39 Sodium 140 mEq/L (136-145) 04/24/25 05:53 Potassium 4.1 mEq/L (3.5-5.1) 04/24/25 05:53 BUN 19 mg/dL (7-18) H 04/24/25 05:53 Creatinine 0.56 mg/dL (0.55-1.02) 04/24/25 05:53 Glucose 152 mg/dL (74-106) H 04/24/25 05:53 Magnesium 2.0 mg/dL (1.6-2.4) 04/24/25 17:21 Total Bilirubin 0.2 mg/dL (0.2-1.0) 04/23/25 15:39 AST 11 U/L (15-37) L 04/23/25 15:39 ALT 17 U/L (13-56) 04/23/25 15:39 Alkaline Phosphatase 86 U/L (45-117) 04/23/25 15:39 Triglycerides Cancelled 04/23/25 17:55 Cholesterol Cancelled 04/23/25 17:55 HDL Cholesterol Cancelled 04/23/25 17:55 Cholesterol/HDL Ratio Cancelled 04/23/25 17:55 Lipase 40 U/L (13-75) 04/23/25 15:39 Home Medications: Aspirin 81 mg PO DAILY 04/23/25 Lovastatin 40 mg PO DAILY 04/23/25 Metformin HCl 1,000 mg PO BID 04/23/25 Sertraline [Zoloft*] 25 mg PO DAILY 04/23/25 glipiZIDE [Glipizide] 5 mg PO BID 04/23/25 Magnesium Glycinate 200 mg PO DAILY 30 Days #60 cap 04/24/25 New Medications: Magnesium Glycinate 200 mg PO DAILY 30 Days #60 cap Physician Discharge Instructions: Patient presented to ED after episode of confusion, nodding off / near passing out, and some left hand / side weakness. She has had a few episodes over the last year characterized by confusion, and at times feeling like her tongue was twisting and couldn't talk. 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 Patient and family deny any recent changes in her medications. Patient lives alone, and family unsure if she takes all her meds as prescribed, and not sure how much she truly eats / stays hydrated. They do recall some days when checking on her, that she hadn't eaten much most of the day. Daughter also reports during this episode, patient was grabbing her chest and telling her daughter she was going to soon / ready to . Although patient didn't repoprt any chest pain/pressure. EKG without ischemic changes in ER, Chest xray was clear. Troponins were trended and normal. Blood work was only notable for low magnesium: 1.2. CT head was negative for acute findings. CTA head/neck, noted bilateral P2 / CARTOGRAPHY TECHNICIAN focal stenosis. Her blood pressure during hospitalization was low-noraml off her anti- hypertensives. Discussed with family need to montior closely, check BP and glucose level daily, ensure they are normal / stable. Stop taking anti-hypertensives for now. Monitor BP daily at home, and once consistently >160/90 for 2-3 days, to restart one blood pressure medication at a taime / every few days. Discussed case with Dr. Connolly, Neurology, who recommended continue current medications, no need to add plavix at this time. Continue aspirin / statin. Recommended close monitoring of hydration status and blood pressure. Magnesium was replaced, and recommended patient take 200mg Mg daily. People have reported good results with brand - [facility] or similar. Follow up PCP within 1 week Neurology within [address] Head (04/23): FINDINGS: INTRACRANIAL: No acute intracranial hemorrhage. No hydrocephalus. No mass effect or midline shift. Mild chronic small vessel ischemic changes.Mild cerebral atrophy. VASCULATURE: No visualized abnormalities in the arteries or dural venous sinuses. SCALP/SKULL: No calvarial fracture identified. No acute soft tissue abnormality. SINUSES: The visualized paranasal sinuses are mostly clear. No significant mastoid fluid. IMPRESSION: No acute intracranial abnormality. CTA Head/Neck (04/23) FINDINGS: RIGHT: ICA: Atherosclerotic calcifications but no flow limiting stenosis. MAGGIE: Patent MCA: Patent CARTOGRAPHY TECHNICIAN: Moderate to severe focal stenosis of the right P2 CARTOGRAPHY TECHNICIAN LEFT: ICA: Atherosclerotic calcifications but no flow limiting stenosis. MAGGIE: Patent MCA: Patent CARTOGRAPHY TECHNICIAN: Multifocal stenoses of the left CARTOGRAPHY TECHNICIAN including a moderate to severe left P2 CARTOGRAPHY TECHNICIAN focal stenosis. Vertebrobasilar: The vertebral arteries are patent. The basilar artery is normal in appearance. 3D images confirm these findings. IMPRESSION: No large vessel occlusion or aneurysm. Both posterior cerebral arteries have moderate to severe focal stenoses. Diet: AHA Followup: NONE,NONE [Primary Care Provider] - Time spent managing pt's care (in minutes): 45
--- NOTE | 2025-04-26 12:27 | EKG ---
Test Date: 2025-04-23 Test Time: 15:17:06 Sales Enablement Lead: SEGUNDO MEASUREMENT RESULTS: Intervals: Rate: 81 OK: 126 QRSD: 88 QT: 384 QTc: 446 [place]: P: 55 OK: 126 QRS: -21 T: 50 INTERPRETIVE STATEMENTS: Normal sinus rhythm Minimal voltage criteria for LVH, may be normal variant Septal infarct, age undetermined Abnormal ECG No previous ECG available for comparison Electronically Signed On 04-26-25 12:21:10 CDT by Guillermo Burton
== END 2025-04-24 18:36 | disposition home or self-care (01) ==
LOC: ER 14:55 → ERHOLD 18:47 → 4TH 19:08 → UNDODISOB 04-24 17:00
PROVIDERS: ADMIT Internal Medicine; ATTEND Hospitalist
DX: R07.9 Chest pain, unspecified (principal); R55 Syncope and collapse; I66.23 Occlusion and stenosis of bilateral posterior cerebral arteries; R47.81 Slurred speech; I10 Essential (primary) hypertension; E78.5 Hyperlipidemia, unspecified; E11.9 Type 2 diabetes mellitus without complications; Z86.73 Personal history of transient ischemic attack (TIA), and cerebral infarction without residual deficits; Z23 Encounter for immunization
CPT/HCPCS: 93005; 85025 ×2; 81001; 80048 ×2; 36415; 83735 ×3; 85610; 82947 ×4; 85379; 80076; 83036; 84484 ×4; 83690; 83880; 70450; 70496; 70498; 71045; 90471; 90732; 99285; Q9967; J3475 ×2; J3010; J2405; J7040; J7030; G0378 ×3